=== PATIENT | female | born 1995 | race Caucasian/White ===

== ENCOUNTER 2019-02-18 00:25 | Emergency (ER) | payer MEDICAID ==
--- NOTE | 2019-02-18 00:32 | ED Physician Documentation ---
PD HPI ABD PAIN - Stated complaint Stated Complaint: ABD PX - Chief complaint Chief Complaint: Abd Pain - History obtained from History obtained from: Patient - History of Present Illness Timing - onset: How many days ago (3-4) Timing - duration: Days Timing - details: Gradual onset, Constant Pain level max: 8 Pain level now: 3 Quality: Pain Location: All over / everywhere (predominantly right-sided) Improved by: Laying still Worsened by: Moving, Palpation Associated symptoms: No: Fever, Nausea, Vomiting, Diarrhea, Constipation Similar symptoms before: Has not had sx before Recently seen: Not recently seen - Additional information Additional information: c/o abd. pain that started 3-4 days ago and initially RLQ but has gradually spread to rest of abdomen although remains predominantly right-sided. Worse with movement, palpation. Denies injury, denies h/o similar pain. Review of Systems Constitutional: denies: Fever, Chills, Sweats Cardiac: reports: Reviewed and negative Respiratory: reports: Reviewed and negative GI: reports: Abdominal Pain. denies: Nausea, Vomiting, Constipation, Diarrhea : denies: Dysuria, Frequency, Now EGA Skin: reports: Reviewed and negative Musculoskeletal: denies: Back pain PD PAST MEDICAL HISTORY - Past Medical History Past Medical History: No - Past Surgical History Past Surgical History: No - Present Medications Home Medications: Ambulatory Orders Medication Instructions Recorded Confirmed Oxycodone HCl/Acetaminophen 1 - 2 each PO Q6H PRN #14 tablet 02/18/19 [Percocet 5-325 mg Tablet] - Allergies Allergies/Adverse Reactions: Allergies Allergy/AdvReac Type Severity Reaction Status Date / Time Sulfa (Sulfonamide Allergy Rash Verified 02/18/19 00:33 Antibiotics) PD ED PE NORMAL - Vitals Vital signs reviewed: Yes - General General: Alert and oriented X 3, No acute distress, Well developed/nourished - HEENT HEENT: Moist mucous membranes - Neck Neck: Supple, no meningeal sign - Cardiac Cardiac: RRR, No murmur - Respiratory Respiratory: No respiratory distress, Clear bilaterally - Abdomen Abdomen: Soft, Non distended, Other (moderate tenderness RUQ and epigastrium without rebound or guarding) - Back Back: No CVA TTP - Derm Derm: Normal color, Warm and dry, No rash Results - Vitals Vitals: Oxygen O2 Source Room air Oxygen Flow Rate 15 - Labs Labs: Laboratory Tests 02/18/19 02/18/19 02/18/19 00:45 00:45 01:01 WBC 11.1 H RBC 3.69 L Hgb 10.6 L Hct 32.3 L MCV 87.5 MCH 28.8 MCHC 33.0 RDW 13.4 Plt Count 352 MPV 7.7 L Neut # (Auto) 8.6 H Lymph # (Auto) 1.4 L [place] # (Auto) 0.8 Eos # (Auto) 0.2 Baso # (Auto) 0.1 Absolute Nucleated RBC 0.01 Nucleated RBC % 0.1 Sodium Potassium Chloride Carbon Dioxide Anion Gap BUN Creatinine Estimated GFR (MDRD) Glucose Calcium Total Bilirubin AST ALT Alkaline Phosphatase Total Protein Albumin Globulin Albumin/Globulin Ratio Lipase Urine Color DARK YELLOW Urine Clarity CLEAR Urine pH 5.5 Ur Specific [place] >=1.030 H >1.030 Urine Protein TRACE Urine Glucose (UA) NEGATIVE Urine Ketones NEGATIVE Urine Occult Blood NEGATIVE Urine Nitrite NEGATIVE Urine Bilirubin NEGATIVE Urine Urobilinogen 0.2 (NORMAL) Ur Leukocyte Esterase NEGATIVE Ur Microscopic Review NOT INDICATED Urine Culture Comments NOT INDICATED Urine HCG, Qual NEGATIVE 02/18/19 01:01 WBC RBC Hgb Hct MCV MCH MCHC RDW Plt Count MPV Neut # (Auto) Lymph # (Auto) [place] # (Auto) Eos # (Auto) Baso # (Auto) Absolute Nucleated RBC Nucleated RBC % Sodium 138 Potassium 3.7 Chloride 102 Carbon Dioxide 26 Anion Gap 10.0 BUN 12 Creatinine 0.4 Estimated GFR (MDRD) 194 Glucose 100 Calcium 8.9 Total Bilirubin 0.4 AST 23 ALT 58 Alkaline Phosphatase 173 H Total Protein 7.8 Albumin 2.9 L Globulin 4.9 H Albumin/Globulin Ratio 0.6 L Lipase 17 L Urine Color Urine Clarity Urine pH Ur Specific [place] Urine Protein Urine Glucose (UA) Urine Ketones Urine Occult Blood Urine Nitrite Urine Bilirubin Urine Urobilinogen Ur Leukocyte Esterase Ur Microscopic Review Urine Culture Comments Urine HCG, Qual - Rads (name of study) CT A/P Radiology: Prelim report reviewed, See rad report chest xray Radiology: Prelim report reviewed, See rad report repeat cxr Radiology: Prelim report reviewed, See rad report PD MEDICAL DECISION MAKING - ED course Complexity details: reviewed results, re-evaluated patient, considered differential, d/w patient ED course: large amt. stool on CT; constipation suspected as etiology of abd. pain, no other source found. right pneumothorax incidentally found on CT. given 100% oxygen for 5-6 hours and cxr repeated, demonstrating no worsening and thus discharged home (small, asymptomatic ptx). Departure - Departure Disposition: 01 Home, Self Care Clinical Impression: Constipation Qualifiers: Constipation type: unspecified constipation type Qualified Code(s): K59.00 - Constipation, unspecified Pneumothorax Qualifiers: Pneumothorax type: spontaneous, primary Qualified Code(s): J93.11 - Primary spontaneous pneumothorax Condition: Good Instructions: ED Constipation, ED Pneumothorax Spontaneous Follow-Up: James Anderson MD [Provider Admit Priv/Credential] - (1-2 days) Prescriptions: Oxycodone HCl/Acetaminophen [Percocet 5-325 mg Tablet] 1 - 2 each PO Q6H PRN #14 tablet PRN Reason: pain Discharge Date/Time: 02/18/19 08:02
[2019-02-18 00:49] LABS: BILIRUBIN,URINE NEGATIVE (NEGATIVE); GLUCOSE, URINE (UA) NEGATIVE (NEGATIVE); KETONES,URINE (UA) NEGATIVE (NEGATIVE); LEUKOCYTE ESTERASE, URINE NEGATIVE (NEGATIVE); NITRITE,URINE NEGATIVE (NEGATIVE); OCCULT BLOOD,URINE NEGATIVE (NEGATIVE); PH,URINE 5.5 PH (5.0-7.5); PROTEIN,URINE TRACE mg/dL (NEGATIVE); UROBILINOGEN,URINE 0.2 (NORMAL) E.U./dL (NORMAL)
[2019-02-18 00:52] LABS: CLARITY,URINE CLEAR (CLEAR); HCG UR QUAL NEGATIVE
[2019-02-18 01:08] LABS: BASOPHILS # (AUTO) 0.1 10^3/uL (0.0-0.1); BASOPHILS % (AUTO) 0.6 %; EOSINOPHILS # (AUTO) 0.2 10^3/uL (0.0-0.7); HGB - HEMOGLOBIN 10.6 g/dL (12.0-16.0); LYMPHOCYTES # (AUTO) 1.4 10^3/uL (1.5-3.5); LYMPHOCYTES % (AUTO) 12.5 %; MEAN CORPUSCULAR HEMOGLOBIN 28.8 pg (27.0-31.0); MEAN CORPUSCULAR VOLUME 87.5 fL (81.0-99.0); MEAN PLATELET VOLUME 7.7 fL (7.9-10.8); MONOCYTES # (AUTO) 0.8 10^3/uL (0.0-1.0); MONOCYTES % (AUTO) 7.2 %; NEUTROPHILS # (AUTO) 8.6 10^3/uL (1.5-6.6); NEUTROPHILS % (AUTO) 77.7 %; PLT - PLATELET COUNT 352 10^3/uL (130-450); RED BLOOD COUNT 3.69 10^6/uL (4.20-5.40); RED CELL DISTRIBUTION WIDTH 13.4 % (12.0-15.0); WHITE BLOOD COUNT 11.1 x10^3/uL (4.8-10.8)
[2019-02-18 01:17] LABS: ALBUMIN 2.9 g/dL (3.2-5.5); ALBUMIN/GLOBULIN RATIO 0.6 (1.0-2.2); BILIRUBIN,TOTAL 0.4 mg/dL (0.2-1.0); CALCIUM 8.9 mg/dL (8.5-10.3); CREATININE 0.4 mg/dL (0.4-1.0); TOTAL PROTEIN 7.8 g/dL (6.7-8.2)
[2019-02-18] MEDS ORDERED: MORPHINE 2 MG/ML SYRINGE IVP STA (01:29)
[2019-02-18] MEDS ORDERED: MORPHINE 2 MG/ML SYRINGE IM STA (01:44)
--- NOTE | 2019-02-18 02:27 | CT Report ---
Reason: abd. pain Procedure Date: 02/18/2019 Accession Number: [id number] / [id number] Procedure: CT - Abdomen/Pelvis WO CPT Code: FULL RESULT: EXAM: CT ABDOMEN AND PELVIS EXAM DATE: 02/18/2019 02:07 AM. CLINICAL HISTORY: Abd. pain. COMPARISONS: None. TECHNIQUE: Routine helical CT imaging was performed through the abdomen and pelvis. IV contrast: None. Enteric contrast: No. Reconstructions: Coronal and sagittal. In accordance with CT protocol optimization, one or more of the following dose reduction techniques were utilized for this exam: automated exposure control, adjustment of mA and/or KV based on patient size, or use of iterative reconstructive technique. FINDINGS: Lung Bases: Small right pneumothorax. Liver: Normal. No masses. Gallbladder/Bile Ducts: The gallbladder is not visualized. No biliary dilatation. Spleen: Normal. Pancreas: Normal. Adrenal Glands: Normal. Kidneys: Normal. No masses or hydronephrosis. Peritoneal Cavity/Bowel: Large amount of stool throughout the colon to the rectum. The appendix is not confidently identified, but no pericecal inflammation or abnormal fluid collection is appreciated. No small bowel dilatation. No adenopathy. Pelvic Organs: Normal. The bladder and visualized pelvic organs are within normal limits. Vasculature: No aneurysms or other significant abnormality. Bones: No significant abnormality. Other: None. IMPRESSION: Right pneumothorax. Large amount of stool throughout the colon to the rectum. Nonvisualization of the appendix, but no secondary findings of acute appendicitis. RADIA The critical result notification system was initiated by Dr. Chaim Schneider at 02:22 AM on 02/18/2019. The above critical result findings were discussed with Gera Whittington by Dr. Chaim Schneider at 02:26 AM on 02/18/2019.
--- NOTE | 2019-02-18 02:56 | XRAY Report ---
Reason: right pneumothorax on CT A/P Procedure Date: 02/18/2019 Accession Number: [id number] / [id number] Procedure: XR - Chest 2 View X-Ray CPT Code: 52210 FULL RESULT: EXAM: CHEST RADIOGRAPHY EXAM DATE: 02/18/2019 02:49 AM. CLINICAL HISTORY: Right-sided pneumothorax incidentally seen on prior CT of the abdomen and pelvis, further assessment. COMPARISON: ABDOMEN/PELVIS W/O 02/18/2019 1:58 AM. TECHNIQUE: 2 views. FINDINGS: Lungs/Pleura: There is a small right-sided pneumothorax measuring 9 mm in pleural separation over the superior portion of the right hemithorax. No effusion. No lung consolidation. Mediastinum: Heart and mediastinal contours are unremarkable. Other: None. IMPRESSION: Small right-sided pneumothorax measuring 9 mm in pleural separation. RADIA
--- NOTE | 2019-02-18 06:36 | XRAY Report ---
Reason: chest pain Procedure Date: 02/18/2019 Accession Number: [id number] / [id number] Procedure: XR - Chest 1 View X-Ray CPT Code: 72027 FULL RESULT: EXAM: CHEST RADIOGRAPHY EXAM DATE: 02/18/2019 06:22 AM. CLINICAL HISTORY: Pneumothorax followup. COMPARISON: CHEST 2 VIEW 02/18/2019 2:35 AM. TECHNIQUE: 1 view. FINDINGS IMPRESSION: 1. No significant change in the small right-sided pneumothorax, measuring 9 mm in pleural separation. 2. Small bibasilar atelectatic change is noted. 3. No other significant interim change. RADIA
[2019-02-18 08:00] VITALS: BP 127/70
== END 2019-02-18 08:02 | disposition home or self-care (01) ==
LOC: ED 00:25
DX: K59.00 Constipation, unspecified (principal); J93.11 Primary spontaneous pneumothorax
CPT/HCPCS: 36415; 71045; 71046; 74176; 80053; 81003; 81025; 83690; 85025; 96372; 99283; 99285; J2270; 81001; 87086

== ENCOUNTER 2020-02-21 04:24 | Emergency (ER) | payer MEDICAID ==
--- NOTE | 2020-02-21 04:57 | ED Physician Documentation ---
History of Present Illness - Stated complaint Stated Complaint: SWOLLEN ARM - Chief complaint Chief Complaint: General - Additonal information Additional information: This is a 24-year-old female who presents with swollen and erythematous area near her left elbow as well as an area of swelling in her right elbow. Patient injects heroin, she states that she has missed the veins recently on both sides and today she developed redness and swelling just distal to the left elbow. She is able to move her elbow without any pain, but just lateral on the distal forearm feels tense and warm. She denies any fever. She uses clean needles. She denies any other skin infections elsewhere. No chest pain or shortness of breath. She also noticed that her urine appeared darker more concentrated than usual. She denies dysuria but would like to be tested for a urinary tract infection. Review of Systems Constitutional: denies: Fever Cardiac: denies: Chest pain / pressure Respiratory: denies: Dyspnea GI: denies: Abdominal Pain : denies: Dysuria Skin: reports: Lesions Musculoskeletal: reports: Extremity pain Immunocompromised: denies: Immunocompromised PD PAST MEDICAL HISTORY - Past Medical History Neuro: Seizure disorder Psych: Depression, Anxiety, Other - Past Surgical History Past Surgical History: No - Present Medications Home Medications: Ambulatory Orders Medication Instructions Recorded Confirmed Oxycodone HCl/Acetaminophen 1 - 2 each PO Q6H PRN #14 tablet 02/18/19 [Percocet 5-325 mg Tablet] Clindamycin HCl [Clindamycin 300MG 300 mg PO Q6H #28 capsule 02/21/20 CAP] Fluconazole 150 mg PO ONCE PRN #1 tablet 02/21/20 Ibuprofen [Ibu] 600 mg PO Q6H PRN #30 tablet 02/21/20 - Allergies Allergies/Adverse Reactions: Allergies Allergy/AdvReac Type Severity Reaction Status Date / Time Sulfa (Sulfonamide Allergy Rash Verified 02/21/20 04:38 Antibiotics) - Social History Does the pt smoke?: Yes Smoking Status: Current every day smoker Does the pt drink ETOH?: No Does the pt have substance abuse?: Yes - Immunizations Immunizations are current?: Yes - POLST Patient has POLST: No PD ED PE NORMAL - Vitals Vital signs reviewed: Yes - General General: Alert and oriented X 3, No acute distress - HEENT HEENT: PERRL - Neck Neck: Supple, no meningeal sign - Cardiac Cardiac: Other (Normal rate in 90s on my examination, regular rhythm) - Respiratory Respiratory: No respiratory distress, Clear bilaterally - Abdomen Abdomen: Non distended - Derm Derm: Warm and dry - Extremities Extremities: Other (There is a 5 cm x 4 cm area of erythema with central fluctuance on the leftDistal forearm. Patient is able to range her elbow without any pain, the elbow joint itself is nontender and without erythema. Over the right elbow there is a non-erythematous Area of fluctuance on the distal forearm. Again she is has full range of motion of the elbow without pain. Both limbs are neurovascularly intact.) - Neuro Neuro: Alert and oriented X 3 - Psych Psych: Normal mood, Normal affect Results - Vitals Vitals: Vital Signs - 24 hr 02/21/20 04:30 Temperature 36.8 C Heart Rate 105 H Respiratory 17 Rate Blood Pressure 146/80 H O2 Saturation 100 Oxygen O2 Source Room air - Labs Labs: Laboratory Tests 02/21/20 02/21/20 04:41 04:41 Urine Color YELLOW Urine Clarity CLEAR Urine pH 5.5 Ur Specific [place] >=1.030 H >1.030 Urine Protein TRACE Urine Glucose (UA) NEGATIVE Urine Ketones NEGATIVE Urine Occult Blood NEGATIVE Urine Nitrite NEGATIVE Urine Bilirubin NEGATIVE Urine Urobilinogen 0.2 (NORMAL) Ur Leukocyte Esterase NEGATIVE Ur Microscopic Review NOT INDICATED Urine Culture Comments NOT INDICATED Urine HCG, Qual NEGATIVE Procedures - Abscess I&D (location) Upper extremity left Preparation: Confirmed with ultrasound, Chlorhexadine, Lidocaine 2 %, With epi Incision: Incised with scalpel, Purulent drainage, Loculations broken, Packed Other: Pt tolerated well, Dressing applied Upper extremity right Preparation: Confirmed with ultrasound, Chlorhexadine, Lidocaine 2 %, With epi Incision: Incised with scalpel, Purulent drainage, Loculations broken Other: Pt tolerated well, Dressing applied, Antibiotic prescribed PD MEDICAL DECISION MAKING - ED course Complexity details: considered differential (Abscess, thrombophlebitis, septic arthritis, cellulitis, UTI, STI) ED course: Patient is well-appearing on arrival, she is tachycardic in triage, her heart rate has normalized by my exam. She has 2 areas of swelling, both them just distal to her bilateral elbows. The elbow joints themselves are not affected - she has full active range of motion with no pain, no swelling over the joints themselves. Ultrasound reveals fluid collections bilaterally. These are incised and drained and the left one had copious drainage, the right only a small amount. She is nontoxic-appearing, the infections are localized, no signs of necrotizing soft tissue infection or more serious pathology at this time. No symptoms to suggest endocarditis or bacteremia. I reviewed wound care, return precautions, and outpatient follow-up, as well as recommendations on ceasing drug use. As a secondary complaint patient had some concentrated urine and she was concerned about UTI, her urine is clean today and hCG is negative, after discussion with her we will send for GC and chlamydia as well, but will hold off on empiric treatment. She was prescribed clindamycin as well as fluconazole as needed for yeast infection which she tends to get with antibiotics. I reviewed return precautions with patient once more and she was discharged home in good condition. Departure - Departure Disposition: 01 Home, Self Care Clinical Impression: Abscess Condition: Good Instructions: ED Abscess IandD Prescriptions: Clindamycin HCl [Clindamycin 300MG CAP] 300 mg PO Q6H #28 capsule Fluconazole 150 mg PO ONCE PRN #1 tablet PRN Reason: As Needed Per Provider Orders Comments: We have drained the abscesses on your arm, please keep these dressed with a thin layer of antibiotic ointment and then a simple bandage. You will likely continue to have some mild drainage from the wounds. You may run water over the wounds in the shower and use mild soap on them. If the area of redness and swelling is not improving, or if you are having redness streaking up your arm, fever of 100.4 F or above, or any other concerning symptoms, return to the emergency department. Take the entire course of clindamycin as prescribed. You may also take ibuprofen 600 mg every 6 hours and Tylenol 650 mg every 6 hours as needed for pain and discomfort. You may use cool or warm compresses on the areas as well. Please reestablish with the methadone clinic, I think that you have good insight into your addiction and I believe in you being able to be clean from drugs long- term!
[2020-02-21 05:16] LABS: BILIRUBIN,URINE NEGATIVE (NEGATIVE); GLUCOSE, URINE (UA) NEGATIVE (NEGATIVE); KETONES,URINE (UA) NEGATIVE (NEGATIVE); LEUKOCYTE ESTERASE, URINE NEGATIVE (NEGATIVE); NITRITE,URINE NEGATIVE (NEGATIVE); OCCULT BLOOD,URINE NEGATIVE (NEGATIVE); PH,URINE 5.5 PH (5.0-7.5); PROTEIN,URINE TRACE mg/dL (NEGATIVE); UROBILINOGEN,URINE 0.2 (NORMAL) E.U./dL (NORMAL)
[2020-02-21 05:19] LABS: CLARITY,URINE CLEAR (CLEAR); HCG UR QUAL NEGATIVE
[2020-02-21] MEDS ORDERED: CLINDAMYCIN 150 MG CAPSULE PO STA (05:50)
[2020-02-21] MEDS ORDERED: KETOROLAC 30 MG/ML VIAL IM STA (05:50)
[2020-02-21 06:21] VITALS: BP 131/78
[2020-02-21 21:45] LABS: TRICHOMONAS VAGINALIS DNA POSITIVE (NEGATIVE)
== END 2020-02-21 06:20 | disposition home or self-care (01) ==
LOC: ED 04:24
DX: L02.414 Cutaneous abscess of left upper limb (principal); L02.413 Cutaneous abscess of right upper limb; F17.200 Nicotine dependence, unspecified, uncomplicated
CPT/HCPCS: 10061; 81003; 81025; 87491; 87591; 87661; 96372; 99283; 99284; A9270; 81001; 87086

== ENCOUNTER 2020-02-27 17:15 | Emergency (ER) | payer MEDICAID ==
[2020-02-27 17:25] VITALS: BP 120/69
--- NOTE | 2020-02-27 18:16 | ED Physician Documentation ---
PD HPI FEMALE - Stated complaint Stated Complaint: MED REFILL - Chief complaint Chief Complaint: General - History obtained from History obtained from: Patient - History of Present Illness Timing - onset: How many days ago (several days of symptoms vaginally. Was seen for skin abscess with I&D and Rx Clindamycin, which had not filled as yet. Had vaginal symptoms and STD tests done, showing multiple positives. She was called and told to disregard the Clinda and come back to ER for meds for STDs as well. She says the abscess area is mostly healed after just the I&D.) Timing - details: Gradual onset (dysuria and some vaginal discharge.), Waxing and waning Associated symptoms: Pelvic pain, Vaginal discharge. No: Fever, Genital sore/lesion Contributing factors: Sexually active Recently seen: Emergency Dept (couple days ago for skin abscess on forearm) Review of Systems Constitutional: denies: Fever, Chills Throat: denies: Sore throat Respiratory: denies: Cough GI: denies: Nausea, Vomiting, Diarrhea : reports: Dysuria, Discharge Skin: reports: Lesions (forearms abscesses in the past due to IVDU.) PD PAST MEDICAL HISTORY - Past Medical History Neuro: Seizure disorder Psych: Depression, Anxiety, Other - Past Surgical History Past Surgical History: No - Present Medications Home Medications: Ambulatory Orders Medication Instructions Recorded Confirmed Oxycodone HCl/Acetaminophen 1 - 2 each PO Q6H PRN #14 tablet 02/18/19 [Percocet 5-325 mg Tablet] Clindamycin HCl [Clindamycin 300MG 300 mg PO Q6H #28 capsule 02/21/20 CAP] Fluconazole 150 mg PO ONCE PRN #1 tablet 02/21/20 Ibuprofen [Ibu] 600 mg PO Q6H PRN #30 tablet 02/21/20 Chlorhexidine Gluconate [Hibiclens] 15 ml TP DAILY #236 ml 02/27/20 Doxycycline Monohydrate 100 mg PO BID #14 tablet 02/27/20 Fluconazole [Diflucan] 150 mg PO Q3D #3 tablet 02/27/20 metroNIDAZOLE [Flagyl] 500 mg PO BID #14 tablet 02/27/20 - Allergies Allergies/Adverse Reactions: Allergies Allergy/AdvReac Type Severity Reaction Status Date / Time Sulfa (Sulfonamide Allergy Rash Verified 02/27/20 17:25 Antibiotics) - Social History Does the pt smoke?: Yes Smoking Status: Current every day smoker Does the pt drink ETOH?: No Does the pt have substance abuse?: Yes - Immunizations Immunizations are current?: Yes - POLST Patient has POLST: No PD ED PE NORMAL - Vitals Vital signs reviewed: Yes - General General: Alert and oriented X 3, No acute distress, Well developed/nourished - Neck Neck: Supple, no meningeal sign, No adenopathy - Cardiac Cardiac: RRR, No murmur - Respiratory Respiratory: Clear bilaterally - Abdomen Abdomen: Soft, Non tender - Female Female : Deferred - Derm Derm: Other (left forearm with healing small incision and no redness/swelling around it. Several superficial sores scattered on both arms. ) Results - Vitals Vitals: Vital Signs - 24 hr 02/27/20 17:18 Temperature 36.1 C L Heart Rate 71 Respiratory 16 Rate Blood Pressure 120/69 O2 Saturation 100 Oxygen O2 Source Room air PD MEDICAL DECISION MAKING - ED course Complexity details: reviewed old records, reviewed results (recent STD screen positive for all: GC, chlamydia, and BV), considered differential (can change PO abx to Doxycycline to cover for MRSA/staph as well as the CHlamydia. Add Flagyl. Diflucan to pre-empt yeast infection. Given IM rocephin here for the GC. ), d/w patient Departure - Departure Disposition: 01 Home, Self Care Clinical Impression: Abscess re-check, STD (female) Condition: Stable Record reviewed to determine appropriate education?: Yes Prescriptions: Chlorhexidine Gluconate [Hibiclens] 15 ml TP DAILY #236 ml Doxycycline Monohydrate 100 mg PO BID #14 tablet Fluconazole [Diflucan] 150 mg PO Q3D #3 tablet metroNIDAZOLE [Flagyl] 500 mg PO BID #14 tablet Comments: Disregard the prior prescription. Instead use doxycycline twice a day as directed. This will be useful for the skin abscesses as well as the chlamydia. You were treated for the gonorrhea with the injection of ceftriaxone here in the ER. Metronidazole twice daily as directed for the bacterial vaginitis. Diflucan every 3 days x 3 doses to reduce chance of secondary yeast infection. Use the chlorhexidine body wash daily in the shower for the next week or 2 to reduce the chance of recurrent abscesses of the skin. Discharge Date/Time: 02/27/20 19:15
[2020-02-27] MEDS ORDERED: metroNIDAZOLE 250 MG TABLET PO STA (18:37)
[2020-02-27] MEDS ORDERED: LIDOCAINE 1% 2 ML VIAL MC ONE (18:37)
[2020-02-27] MEDS ORDERED: DOXYCYCLINE 100 MG TABLET PO STA (18:37)
[2020-02-27] MEDS ORDERED: cefTRIAXone 500 MG VIAL IM STA (18:37)
== END 2020-02-27 19:15 | disposition home or self-care (01) ==
LOC: ED 17:15
DX: A54.02 Gonococcal vulvovaginitis, unspecified (principal); A56.02 Chlamydial vulvovaginitis; N76.0 Acute vaginitis; B96.89 Other specified bacterial agents as the cause of diseases classified elsewhere; L02.414 Cutaneous abscess of left upper limb; F17.200 Nicotine dependence, unspecified, uncomplicated
CPT/HCPCS: 96372; 99283; 99284; A9270